=== PATIENT | male | born 1970 | race Caucasian/White ===

== ENCOUNTER → 2017-06-02 11:56 | Outpatient (CLI) | payer MEDICAID ==
[2016-03-14 07:50] VITALS: BMI 33.0
[~2017-06-02 11:56] MED LIST: ATIVAN1 MG; CELEXA20 MG PO; CYCLOBENZAPRINE10 MG PO; HYDROCODONE-APA1 TAB PO; PERCOCET 10/3251 TA1 PO; PRILOSEC20 MG PO; ZESTRIL20 MG PO
== END | disposition home or self-care (01) ==
LOC: D.RAD 11:56
DX: M79.641 Pain in right hand (principal)